=== PATIENT | male | born 1980 | race Caucasian/White ===

== ENCOUNTER 2017-05-08 14:39 | Emergency (ER) | payer BC ==
[~2017-05-08] VITALS: Ht 167.6 cm; Wt 77.0 kg
[2017-05-08 14:45] VITALS: TEMP 36.7; Ht 167.6 cm; Wt 77.0 kg
--- NOTE | 2017-05-08 14:56 | EMERGENCY ROOM VISIT NOTE ---
History Report prepared by Stephanie: Rodney Forbes Under the Supervision of: Dr. Aristeo Tripathi D.O. First contact with patient: 14:41 Chief Complaint: CALF PAIN Stated Complaint: CALF INJURY History of Present Illness The patient is a 36 year old male who presents to the Emergency Room with complaints of constant right calf pain starting yesterday morning. The patient states that it is a cramping pain, and it feels like a Darion horse. He additionally states that last night he was having nausea and the chills. The patient denies any chest pain, shortness of breath, abdominal pain, groin pain, thigh pain, history of clots in his lungs or legs, and any recent bites or injuries. He states that he does not take any medications daily, and he had a hernia repair a long time ago. Source of History: patient Onset: yesterday morning Position: other (right calf) Quality: cramping Timing: constant Associated Symptoms: + chills, + nausea, No chest pain, No SOB, No abdominal pain Review of Systems See HPI for pertinent positives & negatives. A total of 10 systems reviewed and were otherwise negative. Past Medical & Surgical Surgical Problems: (1) H/O hernia repair Social History Smoking Status: Never Smoker Marital Status: Housing Status: lives with family Occupation Status: employed Current/Historical Medications Scheduled Cephalexin Monohydrate (Keflex), 500 MG PO QID Sulfa/Trimethoprim (Bactrim Ds 800MG/160MG), 1 TAB PO BID Scheduled PRN Oxycodone Immediate Rel Tab (Roxicodone Ir), 1-2 TAB PO Q4H PRN for Severe Pain Allergies Coded Allergies: No Known Allergies (Unverified , 10/20/14) Physical Exam Vital Signs Date Time Temp Pulse Resp B/P (MAP) Pulse Ox O2 Delivery O2 Flow Rate FiO2 05/08/17 18:00 72 20 120/77 98 Room Air 05/08/17 16:30 74 21 128/79 97 Room Air 05/08/17 16:02 78 12 119/80 100 Room Air 05/08/17 15:22 82 20 123/79 97 Room Air 05/08/17 15:13 91 05/08/17 14:57 Room Air 05/08/17 14:45 36.7 110 20 143/91 98 Room Air Physical Exam GENERAL: Patient is awake, alert, and in no acute distress. Patient is resting comfortably and showing no signs of anxiety EYES: The conjunctivae are clear. The pupils are round and reactive. EARS, NOSE, MOUTH AND THROAT: The nose is without any evidence of any deformity. Mucous membranes are moist tongue is midline NECK: The neck is nontender and supple. RESPIRATORY: Normal respiratory effort is noted there is no evidence of wheezing rhonchi or rales CARDIOVASCULAR: Regular rate and rhythm noted there no murmurs rubs or gallops normal S1 normal S2 GASTROINTESTINAL: The abdomen is soft. Bowel sounds are present in all quadrants. Abdomen is nontender MUSCULOSKELETAL/EXTREMITIES: There is no evidence of gross deformity full range of motion is noted in the hips and shoulders SKIN: There was right calf tenderness, swelling, and erythema on the medial aspect of the calf. Pulses are symmetric in both lower extremities. No lymphangitic streaking appreciated. NEUROLOGIC: Patient is awake alert and oriented x3 strength is symmetric patellar reflexes are 2+ bilaterally Medical Decision & Procedures ER Provider Diagnostic Interpretation: Radiology results as stated below per my review and radiologist interpretation: R TIBIA/FIBULA 2 VIEWS ROUTINE CLINICAL HISTORY: Right leg swelling. COMPARISON: Right knee radiograph October 20, 2014. FINDINGS: No fracture or osseous lesion within the right tibia or fibula is identified. Talar dome is intact. There is no soft tissue gas. IMPRESSION: No abnormality of the right tibia or fibula. Electronically signed by: Lamberto Chamberlain M.D. 05/08/2017 3:28 PM Dictated Date/Time: 05/08/2017 3:27 PM RIGHT LOWER EXTREMITY VENOUS DOPPLER HISTORY: Right leg swelling COMPARISON STUDY: None. FINDINGS: There is normal compressibility, flow, and augmentation within the right lower extremity deep venous system. IMPRESSION: No DVT within the right lower extremity Electronically signed by: Saman Cabrera M.D. 05/08/2017 3:43 PM Dictated Date/Time: 05/08/2017 3:43 PM CHEST ONE VIEW PORTABLE HISTORY: Atypical CHEST PAIN COMPARISON: None. FINDINGS: The lungs are clear. Cardiac silhouette is normal in size. No pleural effusions. No pneumothorax. IMPRESSION: No acute process. Electronically signed by: Saman Cabrera M.D. 05/08/2017 3:21 PM Dictated Date/Time: 05/08/2017 3:20 PM Laboratory Results 05/08/17 15:00 Red Blood Count 4.39, Mean Corpuscular Volume 94.5, Mean Corpuscular Hemoglobin 33.7, Mean Corpuscular Hemoglobin Concent 35.7, Mean Platelet Volume 11.0, Neutrophils (%) (Auto) 80.3, Lymphocytes (%) (Auto) 9.6, Monocytes (%) (Auto) 8.8, Eosinophils (%) (Auto) 0.8, Basophils (%) (Auto) 0.2, Neutrophils # (Auto) 10.69, Lymphocytes # (Auto) 1.28, Monocytes # (Auto) 1.17, Eosinophils # (Auto) 0.10, Basophils # (Auto) 0.02 05/08/17 15:00 Test 05/08/17 15:00 White Blood Count 13.30 K/uL (4.8-10.8) Red Blood Count 4.39 M/uL (4.7-6.1) Hemoglobin 14.8 g/dL (14.0-18.0) Hematocrit 41.5 % (42-52) Mean Corpuscular Volume 94.5 fL (80-100) Mean Corpuscular Hemoglobin 33.7 pg (25-34) Mean Corpuscular Hemoglobin Concent 35.7 g/dl (32-36) Platelet Count 251 K/uL (130-400) Mean Platelet Volume 11.0 fL (7.4-10.4) Neutrophils (%) (Auto) 80.3 % Lymphocytes (%) (Auto) 9.6 % Monocytes (%) (Auto) 8.8 % Eosinophils (%) (Auto) 0.8 % Basophils (%) (Auto) 0.2 % Neutrophils # (Auto) 10.69 K/uL (1.4-6.5) Lymphocytes # (Auto) 1.28 K/uL (1.2-3.4) Monocytes # (Auto) 1.17 K/uL (0.11-0.59) Eosinophils # (Auto) 0.10 K/uL (0-0.5) Basophils # (Auto) 0.02 K/uL (0-0.2) RDW Standard Deviation 41.3 fL (36.4-46.3) RDW Coefficient of Variation 12.1 % (11.5-14.5) Immature Granulocyte % (Auto) 0.3 % Immature Granulocyte # (Auto) 0.04 K/uL (0.00-0.02) Erythrocyte Sedimentation Rate 16 mm/hr (0-14) Prothrombin Time 11.2 SECONDS (9.0-12.0) Prothromb Time International Ratio 1.1 (0.9-1.1) Activated Partial Thromboplast Time 30.8 SECONDS (21.0-31.0) Partial Thromboplastin Ratio 1.2 Anion Gap 6.0 mmol/L (3-11) Est Creatinine Clear Calc Drug Dose 94.1 ml/min Estimated GFR () 104.6 Estimated GFR (Non- 90.2 BUN/Creatinine Ratio 21.2 (10-20) Calcium Level 8.9 mg/dl (8.5-10.1) Total Bilirubin 1.3 mg/dl (0.2-1) Direct Bilirubin 0.2 mg/dl (0-0.2) Aspartate Amino Transf (AST/SGOT) 13 U/L (15-37) Alanine Aminotransferase (ALT/SGPT) 27 U/L (12-78) Alkaline Phosphatase 68 U/L (45-117) Total Creatine Kinase 152 U/L (39-308) Troponin I < 0.015 ng/ml (0-0.045) C-Reactive Protein 10.90 mg/dl (0-0.29) Total Protein 7.2 gm/dl (6.4-8.2) Albumin 3.8 gm/dl (3.4-5.0) Lipase 143 U/L (73-393) Lyme Disease IgG Antibody NEG (NEG) Lyme Disease IgM Antibody NEG (NEG) Laboratory results per my review. Medications Administered Medications (Trade) Dose Ordered Sig/Berenice Route Start Time Stop Time Status Last Admin Dose Admin Sodium Chloride 1,000 ml @ 999 mls/hr Q1H1M STAT IV 05/08/17 15:49 05/08/17 16:49 DC 05/08/17 15:49 999 MLS/HR Ceftriaxone Sodium (Rocephin Inj) 1 gm NOW STAT IV 05/08/17 15:49 05/08/17 15:50 DC 05/08/17 16:01 1 GM ECG Indication: other (right calf pain) Rate (beats per minute): 83 Rhythm: normal sinus Findings: no ectopy, other (No acute ST segment abnormality) Comparison ECG Date: no prior available ED Course 1441: The patient was evaluated in room B6. A complete history and physical examination were performed. 1549: Rocephin 1gm IV, NSS 1,000 ml @ 999 mls/hr IV 1550: I reevaluated the patient, and he is feeling okay. 1739: I reassessed the patient, and he was feeling better. 1808: Upon reevaluation, the patient is doing well. I discussed the results and treatment plan with him. He verbalized agreement of the treatment plan. He was discharged home. Medical Decision Differential diagnosis: Etiologies such as DVT, musculoskeletal, infection, joint effusion, trauma, lymphedema, idiopathic, CHF, as well as others were entertained. Nursing notes reviewed. The patient is a 36-year-old male who presented to the emergency department for an evaluation of right calf swelling. The patient had pain with ambulation and noted that his right calf was swollen. Ultrasound did not show signs of DVT but clinically the patient had signs of cellulitis. He has significant erythema on the medial aspect of his right lower leg. The patient was treated with IV antibiotics in the emergency department. He was also given IV fluids. I discussed the patient's laboratory radiographic studies with him. At this time I feel he would be a good candidate for outpatient therapy. He was encouraged to continue all medications as prescribed and keep the leg elevated as much as possible. He was also encouraged follow-up with his family doctor for reevaluation but return to the emergency department if symptoms change worsen or the need arises. Specifically I told him if symptoms started to worsen with increased erythema streaking up the leg or systemic symptoms of infection such as fever. Medication Reconcilliation Current Medication List: was personally reviewed by me Blood Pressure Screening Patient's blood pressure: Normal blood pressure Impression Primary Impression: Cellulitis of right lower extremity Scribe Attestation The scribe's documentation has been prepared under my direction and personally reviewed by me in its entirety. I confirm that the note above accurately reflects all work, treatment, procedures, and medical decision making performed by me. Departure Information Dispostion Home / Self-Care Prescriptions Oxycodone Immediate Rel Tab (ROXICODONE IR) 5 Mg Tab 1-2 TAB PO Q4H Y for Severe Pain, #24 TAB Prov: Aristeo Tripathi, DO 05/08/17 Cephalexin Monohydrate (KEFLEX) 500 Mg Cap 500 MG PO QID, #40 CAP Prov: Aristeo Tripathi, DO 05/08/17 Sulfa/Trimethoprim (Bactrim Ds 800MG/160MG) Tab 1 TAB PO BID, #20 TAB Prov: Aristeo Tripathi, DO 05/08/17 Referrals No Doctor, Assigned (PCP) Forms HOME CARE DOCUMENTATION FORM, IMPORTANT VISIT INFORMATION, Work Instructions Patient Instructions Cellulitis [facility], [facility] Additional Instructions Call your family to schedule a follow-up appointment. Continue using Motrin and Tylenol as directed for mild pain. Keep the leg elevated as much as possible. Continue all other medications as prescribed. Return to the emergency department immediately if symptoms change worsen or the need arises.
[2017-05-08 15:16] LABS: BASO % 0.2 %; BASO ABS # 0.02 K/uL (0-0.2); COMPLETE YES; EOS % 0.8 %; HEMATOCRIT 41.5 % (42-52); IG% 0.3 %; LYMPH % 9.6 %; LYMPH ABS # 1.28 K/uL (1.2-3.4); MEAN CELL VOLUME 94.5 fL (80-100); MEAN CORPUSCULAR HEMOGLOBIN 33.7 pg (25-34); MEAN CORPUSCULAR HGB CONC 35.7 g/dl (32-36); MONO % 8.8 %; NEUT % 80.3 %; PLATELET COUNT 251 K/uL (130-400); RED BLOOD COUNT 4.39 M/uL (4.7-6.1)
--- NOTE | 2017-05-08 15:22 | DIAGNOSTIC IMAGING REPORT ---
CHEST ONE VIEW PORTABLE HISTORY: Atypical CHEST PAIN COMPARISON: None. FINDINGS: The lungs are clear. Cardiac silhouette is normal in size. No pleural effusions. No pneumothorax. IMPRESSION: No acute process. Electronically signed by: Saman Cabrera M.D. 05/08/2017 3:21 PM Dictated Date/Time: 05/08/2017 3:20 PM
[2017-05-08 15:25] LABS: INR 1.1 (0.9-1.1); PARTIAL THROMBOPLASTIN RATIO 1.2; PROTHROMBIN TIME (PATIENT) 11.2 SECONDS (9.0-12.0)
--- NOTE | 2017-05-08 15:29 | DIAGNOSTIC IMAGING REPORT ---
R TIBIA/FIBULA 2 VIEWS ROUTINE CLINICAL HISTORY: Right leg swelling. COMPARISON: Right knee radiograph October 20, 2014. FINDINGS: No fracture or osseous lesion within the right tibia or fibula is identified. Talar dome is intact. There is no soft tissue gas. IMPRESSION: No abnormality of the right tibia or fibula. Electronically signed by: Lamberto Chamberlain M.D. 05/08/2017 3:28 PM Dictated Date/Time: 05/08/2017 3:27 PM
[2017-05-08 15:33] LABS: ALT/SGPT 27 U/L (12-78); BLOOD UREA NITROGEN 22 mg/dl (7-18); BUN/CREATININE RATIO 21.2 (10-20); CALCIUM 8.9 mg/dl (8.5-10.1); CARBON DIOXIDE 28 mmol/L (21-32); CHLORIDE 104 mmol/L (98-107); CREATININE 1.05 mg/dl (0.60-1.40); GLUCOSE 86 mg/dl (70-99); POTASSIUM 3.7 mmol/L (3.5-5.1); SODIUM 138 mmol/L (136-145)
[2017-05-08 15:36] LABS: ALKALINE PHOSPHATASE 68 U/L (45-117); AST/SGOT 13 U/L (15-37)
--- NOTE | 2017-05-08 15:45 | DIAGNOSTIC IMAGING REPORT ---
RIGHT LOWER EXTREMITY VENOUS DOPPLER HISTORY: Right leg swelling COMPARISON STUDY: None. FINDINGS: There is normal compressibility, flow, and augmentation within the right lower extremity deep venous system. IMPRESSION: No DVT within the right lower extremity Electronically signed by: Saman Cabrera M.D. 05/08/2017 3:43 PM Dictated Date/Time: 05/08/2017 3:43 PM
[2017-05-08] MEDS ORDERED: SODIUM CHLORIDE 0.9% 1000ML 1,000 ML IV STA (15:49)
[2017-05-08] MEDS ORDERED: CEFTRIAXONE SOD INJ 1 GM ADDVIAL IV STA (15:49)
[2017-05-08 17:00] LABS: LYME DISEASE AB IGG NEG (NEG); LYME DISEASE AB IGM NEG (NEG)
[2017-05-08] MEDS ORDERED: CEPH500C2 PO (17:55)
[2017-05-08] MEDS ORDERED: OXYC1TAB3 PO (17:55)
[2017-05-08] MEDS ORDERED: SULF800T23 PO (17:55)
[2017-05-08 18:00] VITALS: BP 120/77; PULSE 72; O2SAT 98
== END 2017-05-08 18:26 | disposition home or self-care (01) ==
LOC: C.EDB 14:40
DX: L03.115 Cellulitis of right lower limb (principal)

== ENCOUNTER 2017-05-09 09:56 | Emergency (ER) | payer BC ==
[~2017-05-09] VITALS: Ht 167.6 cm; Wt 75.5 kg
[~2017-05-09 09:56] MED LIST: CEPH500C2 PO; OXYC1TAB3 PO; SULF800T23 PO
[2017-05-09 09:58] VITALS: TEMP 36.8; Ht 167.6 cm; Wt 75.5 kg
[2017-05-09] MEDS ORDERED: CEFTRIAXONE SOD INJ 1 GM ADDVIAL IV STA (10:15)
[2017-05-09 12:19] VITALS: BP 129/79; PULSE 78; O2SAT 98
--- NOTE | 2017-05-09 14:29 | EMERGENCY ROOM VISIT NOTE ---
History First contact with patient: 10:06 Chief Complaint: LEG PAIN,LEG INJURY Stated Complaint: CALF PAIN History of Present Illness The patient is a 36 year old male who presents to the Emergency Room with complaints of persistent redness of his right leg. The patient was seen in the emergency department yesterday for cellulitis. He was administered IV Rocephin , and provided prescriptions for Bactrim and Keflex. He has been taking these antibiotics as recommended. He reports that the redness has slightly extended past herr that were placed on the leg. He denies any worsening pain, fevers or numbness of the right lower extremity. He rates his discomfort a 5 out of 10. The patient does not believe that the intensity of the redness has worsen, and in fact thinks it has slightly improved. Review of Systems 10 system review was performed and was negative except for pertinent positives and negatives as indicated in history of present illness Past Medical/Surgical History Surgical Problems: (1) H/O hernia repair Family History Unremarkable Social History Smoking Status: Never Smoker Marital Status: Housing Status: lives with family Occupation Status: employed Current/Historical Medications Scheduled Cephalexin Monohydrate (Keflex), 500 MG PO QID Sulfa/Trimethoprim (Bactrim Ds 800MG/160MG), 1 TAB PO BID Scheduled PRN Oxycodone Immediate Rel Tab (Roxicodone Ir), 1-2 TAB PO Q4H PRN for Severe Pain Physical Exam Vital Signs Date Time Temp Pulse Resp B/P (MAP) Pulse Ox O2 Delivery O2 Flow Rate FiO2 05/09/17 12:19 78 16 129/79 98 Room Air 05/09/17 09:58 36.8 93 20 137/77 99 Room Air Physical Exam CONSTITUTIONAL: Healthy and well nourished. Alert and oriented X 3 with positive affect. Patient does not appear acutely ill or toxic. HEENT: Normocephalic, atraumatic. Pupils equal, round and reactive. NECK: Full active range of motion without discomfort. MUSCULOSKELETAL: Examination of the right lower extremity does not show any significant soft tissue edema. An area of erythema on the anterior lateral right leg is noted. Margins were previously demarcated, with some extension inferiorly and proximally. Pedal pulses are intact. INTEGUMENTARY: No rash or other significant dermatologic conditions noted. NEUROLOGIC: No focal neurologic deficits noted. Right foot and toes are sensory intact. Medical Decision & Procedures Medications Administered Medications (Trade) Dose Ordered Sig/Berenice Route Start Time Stop Time Status Last Admin Dose Admin Ceftriaxone Sodium (Rocephin Inj) 1 gm NOW STAT IV 05/09/17 10:15 05/09/17 10:16 DC 05/09/17 10:28 1 GM ED Course Patient history and physical exam were performed. Nurse's notes were reviewed. Vital signs were reviewed and were normal. The patient is afebrile. He does not appear in any acute distress. I did elect to administer an additional Rocephin 1 g IV infusion. The patient was instructed to return in 24 hours if he has no improvement, otherwise will follow up with his PCP as needed. He will complete all Keflex and Bactrim DS antibiotics as prescribed. The patient was happy with plan of care, and voiced understanding of all discharge instructions. Medical Decision Medication Reconcilliation Current Medication List: was personally reviewed by me Blood Pressure Screening Patient's blood pressure: Normal blood pressure Impression Primary Impression: Cellulitis of right leg Departure Information Dispostion Home / Self-Care Condition GOOD Forms HOME CARE DOCUMENTATION FORM, IMPORTANT VISIT INFORMATION Patient Instructions My [facility] Additional Instructions Continue with Keflex and Bactrim DS antibiotics as previously prescribed. The redness should start to fade away within the next 24-48 hours. Return to the emergency department for any progressively worsening redness, swelling, pain or developing fever.
== END 2017-05-09 12:22 | disposition home or self-care (01) ==
LOC: C.EDB 09:58 → C.EDA 12:22
DX: L03.115 Cellulitis of right lower limb (principal); Z98.890 Other specified postprocedural states

== ENCOUNTER 2024-09-02 18:54 | Inpatient (IN) ==
[~2024-09-02 18:54] MED LIST changes: -CEPH500C2 PO; +GABAPENTIN 600 MG TAB PO SCH; -OXYC1TAB3 PO; -SULF800T23 PO
[2024-09-02 19:44] LABS: Basophils # (auto) 0.06 K/uL (0.00-0.20); Basophils % (auto) 0.3 %; Eosinophils # (auto) 0.05 K/uL (0.00-0.50); Eosinophils % (auto) 0.2 %; Hematocrit (blood only) 44.2 % (42.0-52.0); Hemoglobin 15.9 g/dl (14.0-18.0); Immature Granulocytes # (auto) 0.11 K/uL (0.01-0.20); Immature Granulocytes % (auto) 0.5 %; Lymphocytes # (auto) 1.37 K/uL (1.20-3.40); Lymphocytes % (auto) 6.3 %; Mean Corpuscular Hemoglobin 32.1 pg (25.0-34.0); Mean Corpuscular Volume 89.3 fL (80.0-100.0); Mean Platelet Volume 10.9 fL (9.4-12.4); Monocytes # (auto) 1.02 K/uL (0.11-0.59); Monocytes % (auto) 4.7 %; Neutrophils # (auto) 19.25 K/uL (1.40-6.50); Platelet Count 343 K/uL (130-400); RDW Coefficient of Variation 11.9 % (11.5-14.5); RDW Standard Deviation 38.4 fL (36.4-46.3); Red Blood Count 4.95 M/uL (4.70-6.10); White Blood Count 21.86 K/ul (4.8-10.8)
--- NOTE | 2024-09-02 19:44 | Emergency Department Note ---
Impression & Plan Sepsis, Cellulitis of left lower extremity, Leukocytosis ED Provider Note NAME: ELIANA SHERWOOD AGE: 43 SEX: M : 1980 ARRIVES VIA: Walk-In INFORMANT: Patient ED PROVIDER(S): Fabian Arciniega DO CHIEF COMPLAINT: Left leg pain HPI: Patient is a 43-year-old male who presents ER for left leg pain. He notes he has had a wound on the dorsal surface of his ankle for the past 2 weeks. He notes it has gradually opened up. Redness has become significantly worse. He is having swelling of his left calf. He notes fever started on Thursday but he felt well since then. Over the past 24 hours it has gotten significantly worse. He feels hot and cold. Denies any headache or change in vision. No chest pain or shortness of breath. No nausea, vomiting, or diarrhea. No dysuria, urgency, or frequency. ADDITIONAL HISTORY OBTAINED: Per HPI Chronic Medical/Social Conditions Affecting Care: Per HPI PAST MEDICAL HISTORY:See Below PAST SURGICAL HISTORY:See Below FAMILY HISTORY:See Below SOCIAL HISTORY:See Below HOME MEDICATIONS:See Below ALLERGIES:See Below VITALS:See Below PHYSICAL EXAMINATION: GENERAL: Sitting up in bed, alert, well appearing, well nourished, no distress, non-toxic EYE EXAM: normal conjunctiva. OROPHARYNX: no exudate, no erythema, lips, buccal mucosa, and tongue normal and mucous membranes are moist NECK: supple, no nuchal rigidity, no adenopathy, non-tender LUNGS: Clear to auscultation. Normal chest wall mechanics HEART: no murmurs, S1 normal and S2 normal ABDOMEN: abdomen soft, non-tender, normo-active bowel sounds, no masses, no rebound or guarding. BACK: Back is symmetrical on inspection and there is no deformity, no midline tenderness, no CVA tenderness. SKIN: no rashes and no bruising UPPER EXTREMITIES: upper extremities are grossly normal. LOWER EXTREMITIES: Dorsal surface left ankle with 2 open wounds and a small surrounding rash. Skin is erythematous warm and tender. NEURO EXAM: Normal sensorium, cranial nerves II-XII grossly intact, normal speech, no gross weakness of arms, no gross weakness of legs. MEDICAL DECISION MAKING: Patient is a 43-year-old male who presents to the ER for the above-stated complaint. IV was established and blood work was obtained. He was tachycardic with a heart rate in the 130s. He was febrile. On exam he has a clear cellulitis of his left lower extremity with a wound. Labs showed a leukocytosis of 21,000. No significant anemia. INR unremarkable. BMP along with LFTs bilirubin was unremarkable. UA was clean. Patient was given 2 g of Rocephin as well as IV vancomycin. He was updated bedside discussed case with the hospitalist as he was tachycardic, febrile and had a white count of 21,000 and was admitted for for further workup. He was given 2 L of fluids which was just over 30 cc/kg for ideal body weight. Patient was also given IV Toradol. Consults/Care Managements Discussions: Per MDM Triage Nursing notes reviewed. Limited review of prior medical records performed Vital Signs: reviewed and remarkable for febrile tachycardic Differential diagnosis: Differential diagnosis includes etiologies such as sepsis, UTI, pneumonia, metabolic, electrolyte abnormalities, cardiac sources, intracerebral event, toxicologic, neurological, as well as others were entertained. ER treatment provided: See below Diagnostics interpreted by me include EKG and cardiac monitoring as listed below: -Cardiac Monitoring: An order was placed for continuous cardiac monitoring. The monitor shows a rate of 120 with sinus rhythm. -ECG: none -Laboratory studies:Interpreted by me as stated above in MDM and shown below. Imaging studies: Xrays: As interpreted by me:none CTs show: none Procedures:none Critical Care: I have personally spent 32 minutes of critical care time in the direct management of this patient. This includes bedside care, interpretation of diagnostic studies, and testing, discussion with consultants, patient, and family members, and other required patient management activities. This 32 minutes is in excess of all separately billable procedures. Past Med/Surg History Problem List (Updated 09/02/24 @ 23:03 by Fabian Arciniega DO) Leukocytosis (Acute) Cellulitis of left lower extremity (Acute) Sepsis (Acute) Knee pain (Acute) Cellulitis of right leg (Acute) Surgical History (Updated 09/02/24 @ 22:13 by Chelo Hidalgo PA-C) History of lymph node excision right neck. pt reports was benign H/O hernia repair Social History Smoking Status: Never smoker Hx Alcohol Use: Yes (10 beers on and Saturdays. ) Hx Substance Use: No Preferred Language: Sinhala Feels Safe at Home: Yes Allergies Allergies Allergy/AdvReac Type Severity Reaction Status Date / Time No Known Allergies Allergy Unverified 09/02/24 21:35 Home Meds Home Medications Medication Instructions Recorded Confirmed No Known Home Medications 09/02/24 09/02/24 Results & Data (ED) Vital Signs Vital Signs - 24 hr 09/02/24 19:06 09/02/24 19:55 09/02/24 19:59 Temperature 37.9 C H Temperature Source Temporal Artery Scan Pulse Rate 134 H 109 H 103 H Pulse Rate from SpO2 Sensor Respiratory Rate 18 19 Respiratory Effort / Characteristics Non-Labored Spontaneous Respiratory Depth Normal Respiratory Pattern Regular Blood Pressure 165/101 H Blood Pressure Mean 122 Blood Pressure Position Sitting Pulse Oximetry 97 96 Oxygen Delivery Method Room Air Room Air Sepsis Recent Fever Within 48 Hours No Sepsis New/Unexplained Change in Mental Status N/A Sepsis Action Taken by Nursing No Action Required 09/02/24 20:15 09/02/24 20:36 09/02/24 20:45 Temperature Temperature Source Pulse Rate 106 H 107 H Pulse Rate from SpO2 Sensor 108 H 107 H Respiratory Rate 18 18 Respiratory Effort / Characteristics Respiratory Depth Respiratory Pattern Blood Pressure 146/109 H 163/109 H 156/113 H Blood Pressure Mean 121 127 127 Blood Pressure Position Pulse Oximetry 96 96 Oxygen Delivery Method Sepsis Recent Fever Within 48 Hours Sepsis New/Unexplained Change in Mental Status Sepsis Action Taken by Nursing 09/02/24 20:48 09/02/24 21:03 09/02/24 21:15 Temperature Temperature Source Pulse Rate 112 H 122 H Pulse Rate from SpO2 Sensor 111 H 122 H Respiratory Rate 20 19 Respiratory Effort / Characteristics Respiratory Depth Respiratory Pattern Blood Pressure 156/113 H 155/119 H 148/90 H Blood Pressure Mean 127 131 109 Blood Pressure Position Pulse Oximetry 96 96 Oxygen Delivery Method Sepsis Recent Fever Within 48 Hours Sepsis New/Unexplained Change in Mental Status Sepsis Action Taken by Nursing 09/02/24 21:30 09/02/24 21:45 09/02/24 22:00 Temperature Temperature Source Pulse Rate 116 H 120 H Pulse Rate from SpO2 Sensor 111 H 119 H Respiratory Rate 17 26 H Respiratory Effort / Characteristics Respiratory Depth Respiratory Pattern Blood Pressure 159/101 H 147/99 H 156/108 H Blood Pressure Mean 120 115 124 Blood Pressure Position Pulse Oximetry 96 97 Oxygen Delivery Method Sepsis Recent Fever Within 48 Hours Sepsis New/Unexplained Change in Mental Status Sepsis Action Taken by Nursing Laboratory Data 09/02/24 19:19 09/02/24 19:19 Lab Results 09/02/24 09/02/24 Range/Units 19:19 Unknown WBC 21.86 H (4.8-10.8) K/ul RBC 4.95 (4.70-6.10) M/uL Hgb 15.9 (14.0-18.0) g/dl Hct 44.2 (42.0-52.0) % MCV 89.3 (80.0-100.0) fL MCH 32.1 (25.0-34.0) pg MCHC 36.0 (32.0-36.0) g/dL RDW Std Deviation 38.4 (36.4-46.3) fL RDW Coeff of Jeff 11.9 (11.5-14.5) % Plt Count 343 (130-400) K/uL MPV 10.9 (9.4-12.4) fL Immature Gran % (Auto) 0.5 % Neut % (Auto) 88.0 % Lymph % (Auto) 6.3 % [place] % (Auto) 4.7 % Eos % (Auto) 0.2 % Baso % (Auto) 0.3 % Neut # (Auto) 19.25 H (1.40-6.50) K/uL Lymph # (Auto) 1.37 (1.20-3.40) K/uL [place] # (Auto) 1.02 H (0.11-0.59) K/uL Eos # (Auto) 0.05 (0.00-0.50) K/uL Baso # (Auto) 0.06 (0.00-0.20) K/uL Immature Gran # (Auto) 0.11 (0.01-0.20) K/uL PT 10.9 (9.0-12.0) Seconds INR 1.0 (0.9-1.1) APTT 27 (21-31) Seconds PTT Ratio 1.0 Sodium 134 L (136-145) mmol/L Potassium 3.8 (3.5-5.1) mmol/L Chloride 101 (98-107) mmol/L Carbon Dioxide 24 (21-32) mmol/L Anion Gap 9 (3-11) BUN 16 (6-23) mg/dl Creatinine 1.04 (0.6-1.4) mg/dl Est Cr Clr Drug Dosing 96.8 ml/min eGFR 90.80 BUN/Creatinine Ratio 15.4 (10-20) Glucose 98 (70-99(Fasting)) mg/dl Lactate 1.4 (0.4-2.0) mmol/L Calcium 10.1 (8.6-10.3) mg/dl Magnesium 1.7 (1.7-2.4) mg/dl Total Bilirubin 1.2 H (0.2-1.0) mg/dl AST 28 (13-39) U/L ALT 55 H (7-52) U/L Alkaline Phosphatase 79 (34-104) U/L Troponin I High Sens < 2.3 (0-20) pg/ml Total Protein 7.9 (6.0-8.3) gm/dl Albumin 4.6 (3.4-5.0) gm/dl Globulin 3.3 (2.5-4.0) gm/dl Albumin/Globulin Ratio 1.4 (0.9-2) Procalcitonin 0.04 (0-0.5) ng/ml Urine Color Yellow Urine Appearance Clear (Clear) Urine pH 5.5 (4.5-7.5) Ur Specific [place] 1.009 (1.000-1.030) Urine Protein Negative (Negative) Urine Glucose (UA) Negative (Negative) Urine Ketones 1+ H (Negative) Urine Blood Negative (Negative) Urine Nitrite Negative (Negative) Urine Bilirubin Negative (Negative) Urine Urobilinogen Negative (Negative) Ur Leukocyte Esterase Negative (Negative) Administered Medications Sodium Chloride (Nss) 1,000 mls @ 999 mls/hr IV .Q1H1M KIM Stop: 09/02/24 23:00 Last Admin: 09/02/24 22:09 Dose: 999 mls/hr Documented By: Infusion: 09/02/24 22:09 Dose: Infused Documented By: NRTravon Admin: 09/02/24 21:13 Dose: 999 mls/hr Documented By: HAI Doxycycline Hyclate 100 mg/ (Dextrose) 100 mls @ 50 mls/hr IV NOW STA Stop: 09/02/24 23:36 Last Admin: 09/02/24 22:09 Dose: 50 mls/hr Documented By: HAI Magnesium Sulfate/Dextrose (Magnesium Sulfate / D5w) 1 gm in 100 mls @ 50 mls/hr IV Q2H KIM Stop: 09/03/24 01:59 Last Admin: 09/02/24 22:08 Dose: 50 mls/hr Documented By: NRTravon Discontinued Medications Ceftriaxone Sodium (Rocephin) 2,000 mg in 50 mls @ 100 mls/hr IV NOW STA Stop: 09/02/24 20:05 Last Infusion: 09/02/24 20:29 Dose: Infused Documented By: NRTravon Admin: 09/02/24 19:46 Dose: 100 mls/hr Documented By: JUAQUIN Vancomycin HCl 1,750 mg/ (Sodium Chloride) 535 mls @ 200 mls/hr IV NOW ONE Stop: 09/02/24 22:29 Last Admin: 09/02/24 21:27 Dose: Not Given Documented By: HAI Ketorolac Tromethamine (Ketorolac Tromethamine 15 Mg/Ml Vial) 10 mg IV NOW ONE Stop: 09/02/24 19:37 Last Admin: 09/02/24 19:47 Dose: 10 mg Documented By: JUAQUIN Discharge Plan Visit Data Chief Complaint: Leg Injury/Pain Stated Complaint: L CALF/ANKLE SWOLLEN/RED ED Provider: Fabian Arciniega Discharge Problem: Sepsis, Cellulitis of left lower extremity, Leukocytosis Forms Stand Alone Forms: [employer] Prescriptions Prescriptions: No Action No Known Home Medications Referrals Referrals: Prasanth Guajardo [Primary Care Provider] - Discharge Problem: Sepsis Qualifiers: Sepsis type: sepsis due to unspecified organism Sepsis acute organ dysfunction status: unspecified Qualified Code(s): A41.9 - Sepsis, unspecified organism Leukocytosis Qualifiers: Leukocytosis type: unspecified Qualified Code(s): D72.829 - Elevated white blood cell count, unspecified
[2024-09-02] MEDS: cefTRIAXone SODIUM 2,000 MG/50 ML BAG IV STA (19:46)
[2024-09-02] MEDS: KETOROLAC TROMETHAMINE 15 MG/ML VIAL IV ONE (19:47)
[2024-09-02] MEDS ORDERED: VANCOMYCIN CONSULT ACTIVE PRN (19:49)
[2024-09-02 20:04] LABS: Alanine Aminotransferase 55 U/L (7-52); Albumin Globulin Ratio 1.4 (0.9-2); Albumin Level 4.6 gm/dl (3.4-5.0); Alkaline Phosphatase 79 U/L (34-104); Anion Gap 9 (3-11); Aspartate Aminotransferase 28 U/L (13-39); BUN Creatinine Ratio 15.4 (10-20); Bilirubin,Total 1.2 mg/dl (0.2-1.0); Blood Urea Nitrogen 16 mg/dl (6-23); Calcium 10.1 mg/dl (8.6-10.3); Carbon Dioxide 24 mmol/L (21-32); Chloride 101 mmol/L (98-107); Creatinine Clr Calc Pharmacy 96.8 ml/min; Globulin 3.3 gm/dl (2.5-4.0); Glucose 98 mg/dl (70-99(Fasting)); Magnesium 1.7 mg/dl (1.7-2.4); Potassium 3.8 mmol/L (3.5-5.1); Sodium 134 mmol/L (136-145); Total Protein 7.9 gm/dl (6.0-8.3)
[2024-09-02 20:10] LABS: Troponin I High Sensitivity < 2.3 pg/ml (0-20)
[2024-09-02 20:20] LABS: Partial Thromboplastin Time 27 Seconds (21-31); Prothrombin Time 10.9 Seconds (9.0-12.0)
[2024-09-02] MEDS: SODIUM CHLORIDE 0.9% 1,000 ML IV SCH (21:13)
--- NOTE | 2024-09-02 21:14 | History & Physical Report ---
Date of Service September 02, 2024 Assessment & Plan (1) Sepsis: (2) Cellulitis of left lower extremity: Plan: HPI, ROS, PE completed by Chelo Hidalgo PA-C Assessment and Plan per Dr Arias. See addendum. History of Present Illness Chief Complaint: leg pain and fever Primary Care Provider: Prasanth Guajardo Patient is 43 year old male without significant medical history presented to ER with c/o left leg pain, erythema and fever. Patient reports 2 weeks ago had itchy area to left anterior lower leg and was scratching at area. Reports had some scratches noted the following morning. Wears boots and states boots rubbed at area. Noticed some surrounding erythema. States 6 days ago started with tactile fever, diaphoresis, nausea and vomiting and had noticed edema and erythema to left ankle. He reports felt better without further chills/N/V. Today increased pain to left lower leg, increased erythema and has chills. Taking Tylenol and ibuprofen with limited relief. Having some PARRISH today. Denies any known insect or animal bites or poison shahab exposure. States episode of cellulitis in remote past that was treated with oral antibiotics. Denies history MRSA. Reports last tetanus booster within the last 10 years. Denies hematemesis, hematochezia, melena, diarrhea, constipation, dizziness, syncope, vision changes, neck pain, CP, SOB, cough, sore throat, rhinorrhea, abdominal pain, paresthesias, weakness, other rashes, urinary symptoms. Presented to ER and noted to be febrile with T: 37.9C, P: 134, R: 18, BP 165/101, 97% on room air. WBC: 21.8, lactate: 1.4, procalcitonin: 0.04. In ER given 1L NSS, Rocephin 2 g IV, vancomycin IV, Toradol 10 mg IV. Allergies Allergy/AdvReac Type Severity Reaction Status Date / Time No Known Allergies Allergy Unverified 09/02/24 21:35 Home Medications Medication Instructions Recorded Confirmed Type No Known Home Medications 09/02/24 09/02/24 History Past Med/Surg History Problem List (Updated 09/02/24 @ 23:03 by Fabian Arciniega DO) Leukocytosis (Acute) Cellulitis of left lower extremity (Acute) Sepsis (Acute) Knee pain (Acute) Cellulitis of right leg (Acute) Surgical History (Updated 09/02/24 @ 22:13 by Chelo Hidalgo PA-C) History of lymph node excision right neck. pt reports was benign H/O hernia repair Social History Smoking Status: Never smoker Hx Alcohol Use: Yes Alcohol type: beer Hx Substance Use: No Preferred Language: Hungarian Communication Ability: Effective Account Adjuster Required: No Beliefs That Will Affect Care: None Current Living Situation: Alone Other Information That Helps Us Care for You: No Feels Safe at Home: Yes Safety Concerns: Feels Safe At This Time Review of Systems Review of Systems: All systems reviewed & are unremarkable except as noted in HPI & below Physical Exam Physical Exam: General: no acute distress, WDWN Head: normocephalic, atraumatic Eyes: conjunctiva non-injected, anicteric ENT: normal inspection external ears, nose, mucous membranes moist Neck: supple, trachea midline, non-tender Lungs: RR: 24, speaks in full sentences without noted respiratory distress, no wheezing/rhonchi/rales CV: tachycardia, rate 120, no murmur Abd: normal BS, soft, non-tender Ext: no cyanosis. LLE: +edema to distal leg, ankle and foot. +erythema to distal leg and ankle extending to foot with warmth and tenderness to palpation. +scabbed lesions to anterior ankle. ROM intact. distal pulses intact Neuro: A&O x 3, no focal deficits noted, normal affect Skin: as above in Ext, otherwise skin feels hot, dry Results & Data Results & Data Vital Signs (Past 12 Hours) Vital Signs Temp Pulse Resp BP Pulse Ox O2 Del Method 09/02/24 19:59 103 H 09/02/24 19:55 109 H 19 96 Room Air 09/02/24 19:06 37.9 C H 134 H 18 165/101 H 97 Room Air Laboratory Results Short CBC 09/02/24 Range/Units 19:19 WBC 21.86 H (4.8-10.8) K/ul Hgb 15.9 (14.0-18.0) g/dl Hct 44.2 (42.0-52.0) % Plt Count 343 (130-400) K/uL BMP 09/02/24 19:19 Sodium 134 L Potassium 3.8 Chloride 101 Carbon Dioxide 24 BUN 16 Creatinine 1.04 Glucose 98 Calcium 10.1 Liver Function 09/02/24 Range/Units 19:19 Total Bilirubin 1.2 H (0.2-1.0) mg/dl AST 28 (13-39) U/L ALT 55 H (7-52) U/L Alkaline Phosphatase 79 (34-104) U/L Albumin 4.6 (3.4-5.0) gm/dl Supervising Physician Co-Signing Physician Notes IM ATTENDING : Patient seen and examined. History obtained from patient, family, and records. Limited history from patient secondary to disorientation. Concur with salient points upon review of preceding documentation by Ms. Chelo Hidalgo PA-C. In addition, patient admits to alcohol binging on the weekend. Initial RESHMA S score at the ER was [address] LLE: 1. Soft tissue stranding in sub cutaneous plane of leg and visualised foot, predominantly along the lateral aspect of the leg. 2. Soft tissue stranding anterior to the patella. 3. --Could be cellulitis 4. No filling defects in visualised arteries and veins of leg and foot. LLE ultrasound No sonographic evidence of acute DVT was detected at the time of examination. I take responsibility for plan of care below. FINAL ASSESSMENT AND PLAN as follows : Sepsis secondary to LLE cellulitis Alcohol withdrawal Situational hypertension secondary to above Admit to med/tele CS, doxycycline and cefepime RESHMA S, DT precautions DVT prophylaxis per Lovenox subcu Full code I spent a total of 30 minutes coordinating, documenting, and providing care for this patientexcludingtime spent by another provider/QHP. Text document was generated using [employer] voice recognition software. It may contain grammatical or spelling errors. Kindly contact undersigned for clarification of any documentation item in question.
[2024-09-02] MEDS: VANCOMYCIN HCL 1,750 MG in SODIUM CHLORIDE 0.9% 500 ML IV ONE (21:27)
[2024-09-02] MEDS: MAGNESIUM SULFATE / D5W 1 GM/100 ML BAG IV SCH (22:08)
[2024-09-02] MEDS: DOXYCYCLINE HYCLATE 100 MG in DEXTROSE 5% MINI-B 100 ML IV STA (22:09)
[2024-09-02 22:20] LABS: Appearance Urine Clear (Clear); Bilirubin Urine Negative (Negative); Blood Urine Negative (Negative); Color Urine Yellow; Glucose Urine UA Negative (Negative); Ketones Urine 1+ (Negative); Leukocyte Esterase Urine Negative (Negative); Nitrite Urine Negative (Negative); Protein Urine Negative (Negative); Specific Gravity Urine 1.009 (1.000-1.030); Urobilinogen Urine Negative (Negative); pH Urine 5.5 (4.5-7.5)
[2024-09-02] MEDS ORDERED: LORazepam 2 MG/1 ML VIAL IV PRN ×2 (23:19→23:55)
[2024-09-02 23:45] LABS: Creatine Kinase 218 U/L (30-223)
[2024-09-02] MEDS ORDERED: GABAPENTIN 1200MG ALCOHOL WITHDRAWAL LOAD PO STA (23:55)
[2024-09-02] MEDS ORDERED: Ativan IV Alcohol Withdrawal--Active Protocol IV PRN (23:55)
[2024-09-03] MEDS: OPTIRAY 320 100ml IV ONE (00:02)
[2024-09-03] MEDS: METOPROLOL TARTRATE 1 MG/ML VIAL IV STA (00:14)
[2024-09-03] MEDS: THIAMINE HCL 100 MG in SYRINGE 9 ML IV STA (00:22)
[2024-09-03] MEDS: LORazepam 0.5 MG TAB PO PRN (00:22)
[2024-09-03] MEDS: ACETAMINOPHEN 500 MG TAB PO PRN (00:22)
[2024-09-03] MEDS: NSS + 20MEQ KCL 20 MEQ/1,000 ML BAG IV ONE (01:21)
[2024-09-03] MEDS: GABAPENTIN 600 MG TAB PO ONE (01:21)
--- NOTE | 2024-09-03 01:23 | CT Scan Report ---
EXAM: CT tib/fib LT w con CLINICAL HISTORY: swelling ro abscess TECHNIQUE: Contiguous axial CT images of left tibia/fibula were obtained with intravenous contrast. Coronal and sagittal reconstructions were likewise performed and indicated to increase the sensitivity for detecting clinically relevant pathology. CT scan was performed according to ALARA (as low as reasonable achievable). COMPARISON: none FINDINGS: Soft tissue stranding in sub cutaneous plane of leg and visualised foot, predominantly along the lateral aspect of the leg. Soft tissue stranding noted anterior to the patella. Normal subcutaneous adipose space in rest of the leg.. No acute fracture or dislocation. No destructive osseous lesion. The visualized muscles and tendons appear grossly unremarkable. No cortical destruction to suggest osteomyelitis. No abscess formation. No significant joint effusion. There are no soft tissue masses. The major arteries, deep and sperficial veins of leg and visualised foot are normal in course, caliber and opacification IMPRESSION: 1. Soft tissue stranding in sub cutaneous plane of leg and visualised foot, predominantly along the lateral aspect of the leg. 2. Soft tissue stranding anterior to the patella. 3. --Could be cellulitis 4. No filling defects in visualised arteries and veins of leg and foot. Electronically signed by Robert Tompkins 09-03-2024 01:23 AM
--- NOTE | 2024-09-03 02:25 | Ultrasound Report ---
EXAM: US venous doppler LE LT CLINICAL HISTORY: Swelling. TECHNIQUE: Ultrasound examination of the left lower extremity veins was performed in real time and duplex. One or more of the following were performed: spectral analysis, resistive index, waveform analysis, and pulsed Doppler. COMPARISON: None. FINDINGS: Normal phasic, non-pulsatile, and spontaneous flow is noted in the left common femoral, superficial femoral, popliteal and posterior tibial, and peroneal veins. Visualized veins of the left lower extremity demonstrate normal compressibility. No sonographic evidence of acute deep vein thrombosis (DVT) is detected in the visualized veins of the lower extremity. Compression and Augmentation: All evaluated veins compress fully with applied transducer pressure. Augmentation of venous flow is noted with distal compression. Additional Findings: No evidence of intraluminal thrombus. IMPRESSION: No sonographic evidence of acute DVT was detected at the time of examination. Disclaimer: DVT could be missed early in the disease when the clot burden is minimal. For patients with moderate and high pretest probability of DVT and negative ultrasound, the [place] [employer] clinical guidelines recommend testing with a D-dimer assay or repeat ultrasound in 5-7 days. If symptoms worsen, the Society of Radiologists in ultrasound recommends repeating ultrasound even earlier. Electronically signed by John Wells 09-03-2024 02:24 AM
[2024-09-03] MEDS: CEFEPIME 2000MG 2,000 MG/20 ML SYR IV SCH (02:31)
[2024-09-03] MEDS: GABAPENTIN 600 MG TAB PO SCH (06:32)
[2024-09-03 06:59] LABS: Hematocrit (blood only) 41.6 % (42.0-52.0); Hemoglobin 14.6 g/dl (14.0-18.0); Mean Corpuscular Hemoglobin 31.5 pg (25.0-34.0); Mean Corpuscular Hgb Conc 35.1 g/dL (32.0-36.0); Mean Corpuscular Volume 89.7 fL (80.0-100.0); Mean Platelet Volume 10.5 fL (9.4-12.4); Platelet Count 275 K/uL (130-400); RDW Coefficient of Variation 11.9 % (11.5-14.5); RDW Standard Deviation 38.7 fL (36.4-46.3); Red Blood Count 4.64 M/uL (4.70-6.10); White Blood Count 24.09 K/ul (4.8-10.8)
[2024-09-03 07:19] LABS: Albumin Globulin Ratio 1.4 (0.9-2); BUN Creatinine Ratio 9.9 (10-20); Bilirubin,Total 1.8 mg/dl (0.2-1.0); Calcium 8.7 mg/dl (8.6-10.3); Creatinine Clr Calc Pharmacy 90.4 ml/min; Globulin 2.8 gm/dl (2.5-4.0); Potassium 4.2 mmol/L (3.5-5.1); Total Protein 6.8 gm/dl (6.0-8.3)
[2024-09-03 07:34] LABS: Basophils # (auto) 0.07 K/uL (0.00-0.20); Basophils % (auto) 0.3 %; Eosinophils # (auto) 0.02 K/uL (0.00-0.50); Eosinophils % (auto) 0.1 %; Immature Granulocytes # (auto) 0.13 K/uL (0.01-0.20); Immature Granulocytes % (auto) 0.5 %; Lymphocytes # (auto) 1.35 K/uL (1.20-3.40); Lymphocytes % (auto) 5.6 %; Monocytes % (auto) 5.8 %; Neutrophils # (auto) 21.12 K/uL (1.40-6.50); Neutrophils % (auto) 87.7 %
--- NOTE | 2024-09-03 09:05 | Electrocardiogram Report ---
Test Reason : Blood Pressure : */* mmHG Vent. Rate : 120 BPM Atrial Rate : 120 BPM P-R Int : 198 ms QRS Dur : 70 ms QT Int : 304 ms P-R-T Axes : 44 17 17 degrees QTcB Int : 429 ms Sinus tachycardia Nonspecific T wave abnormality Abnormal ECG When compared with ECG of 08-May-2017 15:02, Nonspecific T wave abnormality now evident in Lateral leads Confirmed by Clark Garland ([id number]) on 09/03/2024 9:05:02 AM Referred By: REFERRED SELF Confirmed By: Clark Garland
[2024-09-03] MEDS: MULTIVITAMIN TAB PO SCH (09:42)
[2024-09-03] MEDS: ENOXAPARIN INJ 40 MG/0.4 ML SYR SQ SCH (09:42)
[2024-09-03] MEDS: DOXYCYCLINE HYCLATE 100 MG CAP PO SCH (09:42)
[2024-09-03] MEDS: THIAMINE HCL 100 MG TAB PO SCH (09:43)
[2024-09-03] MEDS: FOLIC ACID 1 MG TAB PO SCH (09:43)
[2024-09-03] MEDS: KETOROLAC TROMETHAMINE 15 MG/ML VIAL IV PRN (13:11)
[2024-09-03] MEDS: LORazepam 2 MG/1 ML VIAL IV PRN ×2 (13:21→18:41)
[2024-09-03] MEDS: LACTATED RINGER'S 1,000 ML IV ONE (13:30)
[2024-09-03] MEDS ORDERED: chlordiazePOXIDE ALCOHOL WITHDRAWL 50MG PO STA (13:37)
[2024-09-03] MEDS: chlordiazePOXIDE HCl 25 MG CAP PO SCH (13:52)
[2024-09-03] MEDS: PIPERACILLIN/TAZOBACTAM 4.5 GM/100 ML BAG IV SCH (14:25)
--- NOTE | 2024-09-03 14:27 | Hospitalist Progress Note ---
Date of Service September 03, 2024 Assessment & Plan (1) Sepsis: (2) Cellulitis of left lower extremity: Plan Sepsis Left lower extremity cellulitis --LLE CT:Soft tissue stranding in sub cutaneous plane of leg and visualised foot, predominantly along the lateral aspect of the leg. Soft tissue stranding anterior to the patella. -Could be cellulitis. No filling defects in visualised arteries and veins of leg and foot. -- Venous Doppler:No sonographic evidence of acute DVT was detected at the time of examination. --Blood Culture:Pending --Normal lactate, procalcitonin -- Transition IV cefepime to Zosyn Day#1 --Continue doxycycline --Continue IV fluids Alcohol withdrawal Transition gabapentin to Librium Continue thiamine, folic acid Withdrawal protocol with IV Ativan as needed Eczema Not on medications Advised to follow-up with dermatology as outpatient DVT Px: Korix SQ Code Status Full Code Admission and Anticipated Discharge Date Admission Date: September 02, 2024 Subjective Patient is seen and examined at bedside States having chills, sinus tachycardia on monitor Left leg pain associated with swelling and erythema Erythema better when compared to yesterday Denies any chest pain, dyspnea No other complaints Review of Systems Review of Systems: All systems reviewed & are unremarkable except as noted in Subjective Physical Exam Physical Exam: Physical Exam: Vitals signs as noted above General Appearance:Moderately built and nourished, no apparent distress Head: normocephalic, Atraumatic Eyes: normal inspection, EOMI Neck: supple, Trachea midline Respiratory/Chest: Normal breath sounds, CTA, No accessory muscle use Cardiovascular: S1, S2, No murmur,+Tachycardia Abdomen/GI:Soft, Non tender, Bowel sounds present Extremities/Musculoskeletal:normal inspection, LLE edema, erythema, tender, warm, eczema with scab Neurologic/Psych:AAOX3, grossly no focal neurological deficits Skin: normal color, warm Results & Data Results & Data Vital Signs (Past 12 Hours) Vital Signs Temp Pulse Resp BP Pulse Ox O2 Del Method 09/03/24 13:39 39.4 C H 09/03/24 11:20 38.6 C H 110 H 18 133/84 96 Room Air 09/03/24 07:25 37.9 C H 112 H 18 125/69 94 Room Air 09/03/24 02:34 37.2 C 109 H 18 113/63 94 Room Air Laboratory Results Short CBC 09/02/24 09/03/24 Range/Units 19:19 06:37 WBC 21.86 H 24.09 H (4.8-10.8) K/ul Hgb 15.9 14.6 (14.0-18.0) g/dl Hct 44.2 41.6 L (42.0-52.0) % Plt Count 343 275 (130-400) K/uL BMP 09/02/24 09/03/24 19:19 06:37 Sodium 134 L 135 L Potassium 3.8 4.2 Chloride 101 105 Carbon Dioxide 24 24 BUN 16 11 Creatinine 1.04 1.11 Glucose 98 105 H Calcium 10.1 8.7 Cardiac Enzymes 09/02/24 Range/Units 19:19 Total Creatine Kinase 218 (30-223) U/L Liver Function 09/02/24 09/03/24 Range/Units 19:19 06:37 Total Bilirubin 1.2 H 1.8 H (0.2-1.0) mg/dl AST 28 19 (13-39) U/L ALT 55 H 40 (7-52) U/L Alkaline Phosphatase 79 68 (34-104) U/L Albumin 4.6 4.0 (3.4-5.0) gm/dl Urine 09/02/24 Range/Units Unknown Urine Color Yellow Urine Appearance Clear (Clear) Urine pH 5.5 (4.5-7.5) Ur Specific [place] 1.009 (1.000-1.030) Urine Protein Negative (Negative) Urine Glucose (UA) Negative (Negative) (1) Sepsis Sepsis acute organ dysfunction status: unspecified Sepsis type: sepsis due to unspecified organism Qualified Code(s): A41.9 - Sepsis, unspecified organism
[2024-09-03] MEDS ORDERED: GABAPENTIN 600 MG TAB PO SCH (22:00)
[2024-09-04 06:34] LABS: Hematocrit (blood only) 39.3 % (42.0-52.0); Hemoglobin 13.6 g/dl (14.0-18.0); Mean Corpuscular Hemoglobin 31.9 pg (25.0-34.0); Mean Corpuscular Hgb Conc 34.6 g/dL (32.0-36.0); Mean Corpuscular Volume 92.3 fL (80.0-100.0); Mean Platelet Volume 10.7 fL (9.4-12.4); Platelet Count 250 K/uL (130-400); RDW Coefficient of Variation 11.9 % (11.5-14.5); RDW Standard Deviation 40.6 fL (36.4-46.3); Red Blood Count 4.26 M/uL (4.70-6.10); White Blood Count 20.88 K/ul (4.8-10.8)
[2024-09-04 07:11] LABS: BUN Creatinine Ratio 10.7 (10-20); Calcium 8.7 mg/dl (8.6-10.3); Creatinine Clr Calc Pharmacy 76.6 ml/min; Potassium 4.2 mmol/L (3.5-5.1)
[2024-09-04] MEDS: oxyCODONE HCL IR 5 MG TAB (IMMEDIATE RELEASE) PO PRN (14:20)
--- NOTE | 2024-09-04 14:56 | Hospitalist Progress Note ---
Date of Service September 04, 2024 Assessment & Plan (1) Sepsis: (2) Cellulitis of left lower extremity: Plan Sepsis Left lower extremity cellulitis --LLE CT:Soft tissue stranding in sub cutaneous plane of leg and visualised foot, predominantly along the lateral aspect of the leg. Soft tissue stranding anterior to the patella. -Could be cellulitis. No filling defects in visualised arteries and veins of leg and foot. -- Venous Doppler:No sonographic evidence of acute DVT was detected at the time of examination. --Blood Culture: No growth to date --Normal lactate, procalcitonin -- Transition IV cefepime to Zosyn Day#2 --Continue doxycycline -- Received IV fluids Leukocytosis trending down Continue current management Alcohol withdrawal Transition gabapentin to Librium Continue thiamine, folic acid Withdrawal protocol with IV Ativan as needed Eczema Not on medications Advised to follow-up with dermatology as outpatient DVT Px: Korix SQ Code Status Full Code Admission and Anticipated Discharge Date Admission Date: September 02, 2024 Subjective Patient is seen and examined at bedside States feeling better today Chills resolved Still has leg pain with ambulation No other complaints today Denies any chest pain, dyspnea nausea, vomiting, abdominal pain Review of Systems Review of Systems: All systems reviewed & are unremarkable except as noted in Subjective Physical Exam Physical Exam: Physical Exam: Vitals signs as noted above General Appearance:Moderately built and nourished, no apparent distress Head: normocephalic, Atraumatic Eyes: normal inspection, EOMI Neck: supple, Trachea midline Respiratory/Chest: Normal breath sounds, CTA, No accessory muscle use Cardiovascular: S1, S2, No murmur,+Tachycardia Abdomen/GI:Soft, Non tender, Bowel sounds present Extremities/Musculoskeletal:normal inspection, LLE edema, erythema, tender, warm, eczema with scab Neurologic/Psych:AAOX3, grossly no focal neurological deficits Skin: normal color, warm Results & Data Results & Data Vital Signs (Past 12 Hours) Vital Signs Temp Pulse Pulse Resp BP Pulse Ox O2 Del Method 09/04/24 11:35 37.3 C 101 H 19 134/91 96 Room Air 09/04/24 08:20 107 H 09/04/24 07:45 37.1 C 97 H 18 113/71 97 Room Air 09/04/24 03:40 36.9 C 102 H 16 119/79 95 Room Air Laboratory Results Short CBC 09/04/24 Range/Units 05:46 WBC 20.88 H (4.8-10.8) K/ul Hgb 13.6 L (14.0-18.0) g/dl Hct 39.3 L (42.0-52.0) % Plt Count 250 (130-400) K/uL BMP 09/04/24 05:46 Sodium 134 L Potassium 4.2 Chloride 103 Carbon Dioxide 26 BUN 14 Creatinine 1.31 Glucose 97 Calcium 8.7 (1) Sepsis Sepsis acute organ dysfunction status: unspecified Sepsis type: sepsis due to unspecified organism Qualified Code(s): A41.9 - Sepsis, unspecified organism
--- NOTE | 2024-09-04 19:35 | Communication Note ---
Date of Service: September 04, 2024 Patient with progressive LLE swelling and fever as per RN. Repeat CT LLE Subcutaneous fat stranding and edema of the visualized lower thigh, knee, and leg, greatest laterally, suspicious for cellulitis. No evidence of soft tissue abscess. No soft tissue gas to suggest necrotizing infection. AP Sepsis, LLE cellulitis Daptomycin in place of doxycycline for better MRSA coverage Continue Zosyn
[2024-09-04] MEDS: SODIUM CHLORIDE 0.9% 1,000 ML IV ONE (20:18)
[2024-09-04] MEDS: chlordiazePOXIDE HCl 25 MG CAP PO SCH (20:18)
[2024-09-04] MEDS: MAGNESIUM SULFATE / D5W 1 GM/100 ML BAG IV ONE (20:18)
[2024-09-04] MEDS: OPTIRAY 320 100ml IV ONE (21:21)
[2024-09-04] MEDS: DAPTOmycin 500 MG in SYRINGE 0 ML IV SCH (21:41)
--- NOTE | 2024-09-04 23:01 | CT Scan Report ---
Exam(s): CT EXTREMITY LEFT LOWER With Contrast EXAM: CT Left Lower Extremity With Intravenous Contrast CLINICAL HISTORY: Reason for exam: worsening leg swelling. TECHNIQUE: Axial computed tomography images of the left lower extremity with intravenous contrast. CTDI is 24.91 mGy and DLP is 1260.18 mGy-cm. Automated exposure control was utilized for the study. A dose lowering technique was utilized adhering to the principles of ALARA. CONTRAST: Contrast must be dictated COMPARISON: No relevant prior studies available. FINDINGS: Bones/joints: Unremarkable. No acute fracture. No dislocation. Soft tissues: Subcutaneous fat stranding and edema of the visualized lower thigh, knee, and leg, greatest laterally, suspicious for cellulitis. No evidence of soft tissue abscess. No soft tissue gas to suggest necrotizing infection. IMPRESSION: Subcutaneous fat stranding and edema of the visualized lower thigh, knee, and leg, greatest laterally, suspicious for cellulitis. No evidence of soft tissue abscess. No soft tissue gas to suggest necrotizing infection. Electronically signed by: Leann Strong M.D. 09/04/24 22:59 PM
[2024-09-05 07:42] LABS: Hemoglobin 12.5 g/dl (14.0-18.0); Mean Corpuscular Hemoglobin 31.2 pg (25.0-34.0); Mean Corpuscular Hgb Conc 34.7 g/dL (32.0-36.0); Mean Corpuscular Volume 89.8 fL (80.0-100.0); Mean Platelet Volume 10.2 fL (9.4-12.4); Platelet Count 262 K/uL (130-400); RDW Coefficient of Variation 11.9 % (11.5-14.5); RDW Standard Deviation 38.9 fL (36.4-46.3); Red Blood Count 4.01 M/uL (4.70-6.10); White Blood Count 16.86 K/ul (4.8-10.8)
[2024-09-05 07:50] LABS: BUN Creatinine Ratio 10.3 (10-20); Calcium 8.4 mg/dl (8.6-10.3); Creatinine Clr Calc Pharmacy 85.4 ml/min; Potassium 3.8 mmol/L (3.5-5.1)
[2024-09-05] MEDS ORDERED: chlordiazePOXIDE HCl 25 MG CAP PO SCH (15:00)
--- NOTE | 2024-09-05 15:41 | Hospitalist Progress Note ---
Date of Service September 05, 2024 Assessment & Plan (1) Sepsis: (2) Cellulitis of left lower extremity: Plan Sepsis Left lower extremity cellulitis --LLE CT:Soft tissue stranding in sub cutaneous plane of leg and visualized foot, predominantly along the lateral aspect of the leg. Soft tissue stranding anterior to the patella. -Could be cellulitis. No filling defects in visualised arteries and veins of leg and foot. -- Venous Doppler:No sonographic evidence of acute DVT was detected at the time of examination. --Blood Culture: No growth to date --Normal lactate, procalcitonin -- Transition IV cefepime to Zosyn Day#3 --Continue doxycycline>> transition to daptomycin Day #1 -- Received IV fluids Given worsening erythema, doxycycline changed to daptomycin Leukocytosis trending down Will consider ID evaluation if no improvement Alcohol withdrawal Transition gabapentin to Librium Continue thiamine, folic acid Withdrawal protocol with IV Ativan as needed No signs of withdrawal today Eczema Not on medications Advised to follow-up with dermatology as outpatient DVT Px: Lovenox SQ Code Status Full Code Admission and Anticipated Discharge Date Admission Date: September 02, 2024 Subjective Patient is seen and examined at bedside Leg pain and swelling improving Leg erythema seems to be worsening Leukocytosis trending down States able to ambulate with no significant leg pain today Denies any chest pain, dyspnea nausea, vomiting, abdominal pain Review of Systems Review of Systems: All systems reviewed & are unremarkable except as noted in Subjective Physical Exam Physical Exam: Physical Exam: Vitals signs as noted above General Appearance:Moderately built and nourished, no apparent distress Head: normocephalic, Atraumatic Eyes: normal inspection, EOMI Neck: supple, Trachea midline Respiratory/Chest: Normal breath sounds, CTA, No accessory muscle use Cardiovascular: S1, S2, No murmur Abdomen/GI:Soft, Non tender, Bowel sounds present Extremities/Musculoskeletal:normal inspection, LLE edema, erythema, tender, warm, eczema with scab Neurologic/Psych:AAOX3, grossly no focal neurological deficits Skin: normal color, warm Results & Data Results & Data Vital Signs (Past 12 Hours) Vital Signs Temp Pulse Resp BP Pulse Ox O2 Del Method 09/05/24 15:31 36.7 C 80 20 139/92 97 Room Air 09/05/24 11:53 36.7 C 94 H 20 119/77 95 Room Air 09/05/24 07:51 36.8 C 92 H 20 135/83 95 Room Air Laboratory Results Short CBC 09/05/24 Range/Units 07:21 WBC 16.86 H (4.8-10.8) K/ul Hgb 12.5 L (14.0-18.0) g/dl Hct 36.0 L (42.0-52.0) % Plt Count 262 (130-400) K/uL BMP 09/05/24 07:21 Sodium 133 L Potassium 3.8 Chloride 104 Carbon Dioxide 22 BUN 12 Creatinine 1.16 Glucose 107 H Calcium 8.4 L (1) Sepsis Sepsis acute organ dysfunction status: unspecified Sepsis type: sepsis due to unspecified organism Qualified Code(s): A41.9 - Sepsis, unspecified organism
[2024-09-05] MEDS: chlordiazePOXIDE HCl 25 MG CAP PO SCH ×2 (15:44→21:52)
[2024-09-05] MEDS: PROMETHAZINE 6.25 MG/50.25 ML BAG IV PRN (18:23)
[2024-09-05] MEDS: MEROPENEM 500 MG in SYRINGE 0 ML IV SCH (19:45)
[2024-09-06 06:26] LABS: Hematocrit (blood only) 40.4 % (42.0-52.0); Mean Corpuscular Hemoglobin 31.7 pg (25.0-34.0); Mean Corpuscular Hgb Conc 34.7 g/dL (32.0-36.0); Mean Corpuscular Volume 91.4 fL (80.0-100.0); Mean Platelet Volume 10.1 fL (9.4-12.4); Platelet Count 354 K/uL (130-400); RDW Coefficient of Variation 11.9 % (11.5-14.5); RDW Standard Deviation 39.9 fL (36.4-46.3); Red Blood Count 4.42 M/uL (4.70-6.10); White Blood Count 14.22 K/ul (4.8-10.8)
[2024-09-06 06:49] LABS: BUN Creatinine Ratio 11.2 (10-20); Calcium 9.1 mg/dl (8.6-10.3); Creatinine Clr Calc Pharmacy 85.4 ml/min; Potassium 3.9 mmol/L (3.5-5.1)
--- NOTE | 2024-09-06 15:20 | Hospitalist Progress Note ---
Date of Service September 06, 2024 Assessment & Plan (1) Sepsis: (2) Cellulitis of left lower extremity: Plan Sepsis Left lower extremity cellulitis --LLE CT:Soft tissue stranding in sub cutaneous plane of leg and visualized foot, predominantly along the lateral aspect of the leg. Soft tissue stranding anterior to the patella. -Could be cellulitis. No filling defects in visualised arteries and veins of leg and foot. -- Venous Doppler:No sonographic evidence of acute DVT was detected at the time of examination. 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 Erythematous rash on back Likely contact dermatitis Benadryl/nystatin as needed Will consider steroid cream if needed Monitor for any drug reaction--less likely Eczema Not on medications Advised to follow-up with dermatology as outpatient DVT Px: Lovenox SQ Code Status Full Code Admission and Anticipated Discharge Date Admission Date: September 02, 2024 Subjective Patient is seen and examined at bedside Noticed some rash on the back which is itchy Discussed with patient's family at bedside Leg pain, swelling, erythema slowly improving No other complaints today Denies any chest pain, dyspnea nausea, vomiting, abdominal pain Review of Systems Review of Systems: All systems reviewed & are unremarkable except as noted in Subjective Physical Exam Physical Exam: Physical Exam: Vitals signs as noted above General Appearance:Moderately built and nourished, no apparent distress Head: normocephalic, Atraumatic Eyes: normal inspection, EOMI Neck: supple, Trachea midline Respiratory/Chest: Normal breath sounds, CTA, No accessory muscle use Cardiovascular: S1, S2, No murmur Abdomen/GI:Soft, Non tender, Bowel sounds present Extremities/Musculoskeletal:normal inspection, LLE edema, erythema, tender, warm, eczema with scab Neurologic/Psych:AAOX3, grossly no focal neurological deficits Skin: normal color, warm Results & Data Results & Data Vital Signs (Past 12 Hours) Vital Signs Temp Pulse Resp BP Pulse Ox O2 Del Method 09/06/24 11:34 36.8 C 81 12 143/91 H 95 Room Air 09/06/24 07:50 36.7 C 83 16 136/90 96 Room Air 09/06/24 03:22 36.6 C 76 18 121/73 96 Room Air Laboratory Results Short CBC 09/06/24 Range/Units 05:59 WBC 14.22 H (4.8-10.8) K/ul Hgb 14.0 (14.0-18.0) g/dl Hct 40.4 L (42.0-52.0) % Plt Count 354 (130-400) K/uL BMP 09/06/24 05:59 Sodium 138 Potassium 3.9 Chloride 105 Carbon Dioxide 26 BUN 13 Creatinine 1.16 Glucose 104 H Calcium 9.1 (1) Sepsis Sepsis acute organ dysfunction status: unspecified Sepsis type: sepsis due to unspecified organism Qualified Code(s): A41.9 - Sepsis, unspecified organism
[2024-09-06] MEDS ORDERED: GABAPENTIN 600 MG TAB PO SCH (18:00)
[2024-09-06] MEDS: NYSTATIN POWDER 15GM BTL EXT PRN (21:03)
[2024-09-06] MEDS: diphenhydrAMINE HCL 25 MG/10 ML UDC PO PRN (21:33)
[2024-09-07 07:49] LABS: Hematocrit (blood only) 38.4 % (42.0-52.0); Hemoglobin 13.3 g/dl (14.0-18.0); Mean Corpuscular Hemoglobin 31.6 pg (25.0-34.0); Mean Corpuscular Hgb Conc 34.6 g/dL (32.0-36.0); Mean Corpuscular Volume 91.2 fL (80.0-100.0); Mean Platelet Volume 10.2 fL (9.4-12.4); Platelet Count 350 K/uL (130-400); RDW Coefficient of Variation 12.1 % (11.5-14.5); RDW Standard Deviation 40.3 fL (36.4-46.3); Red Blood Count 4.21 M/uL (4.70-6.10); White Blood Count 13.39 K/ul (4.8-10.8)
[2024-09-07 08:11] LABS: Calcium 9.2 mg/dl (8.6-10.3); Creatinine Clr Calc Pharmacy 86.7 ml/min
--- NOTE | 2024-09-07 12:51 | Infectious Disease Consult ---
Date of Service September 07, 2024 Telehealth Information I performed this visit using a real-time telehealth connection between my location and the patients location ([facility]). After connecting through interactive tele-video, patient was identified by name and date of and/or wristband check.Patient (or authorized healthcare digital media representative) was informed that this was a telemedicine visit and it was being conducted confidentially over secure lines. My office door was closed and no on e else was present in the room with me.Patient (or authorized healthcare digital media representative) provided consent to proceed with the visit, expressed an understanding of privacy and security of the telemedicine visit, and gave permission to have a hospital digital media representative in the room in order to assist with the visit and to conduct portions of the visit, as needed. I informed the patient (or authorized healthcare digital media representative) that I reviewed their record and presented the opportunity for them to ask any questions regarding the visit today. The patient agreed to participate. Assessment & Plan (1) Cellulitis of left lower extremity: (2) Sepsis: Plan As I can see from the chart, the patient had a simple cellulitis which might have progressed initially but has been getting better over the last 2 days. Cellulitis is less likely to be caused by Gram-negative organisms unless there are open wounds, diabetic ulcers or traumatic injuries; therefore, I would recommend stopping meropenem. Please discontinue daptomycin and start on IV vancomycin if no contraindications. if he continues to improve and is stable for discharge, step-down IV vancomycin to oral linezolid 600 mg twice daily to complete a course of 14 days including inpatient antibiotic days. Thank you for consulting ID. We will sign off for now. History of Present Illness History of Present Illness Mr. Le is a 44-year-old man with medical history of obesity who was admitted to [facility] on 09/02/2024 because of left leg pain and fever. He mentioned that he scratched an itchy area on his left leg around 2 weeks prior to presentation which usually also rubs against his boots. Around 1 week prior to presentation, he started feeling sick with the swelling, redness and pain around his left ankle. He also reported subjective fevers. On presen tation, he was febrile at 38.8 and tachycardic at 116. Initial workup showed leukocytosis of 21.8 (ANC 19), with CT of the left leg showing soft tissue stranding in the subcutaneous plane mainly along the lateral aspect of the leg. He was started on broad-spectrum antibiotics including doxycycline and piperacillin tazobactam/cefepime which later, were escalated to meropenem and daptomycin as the redness continued to worsen. At that time, another repeat CT scan showed subcutaneous fat stranding and edema lower thigh, knee and leg without any evidence of deep-seated infection or necrotizing infection. ID team was consulted for further recommendation and to help guide antiboitic treatment. Allergies Allergy/AdvReac Type Severity Reaction Status Date / Time No Known Allergies Allergy Unverified 09/02/24 21:35 Home Medications Medication Instructions Recorded Confirmed Type No Known Home Medications 09/02/24 09/02/24 History Patient History Surgical History (Updated 09/02/24 @ 22:13 by Chelo Hidalgo PA-C) History of lymph node excision right neck. 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 Physical Exam Could not be performed as the encounter was conducted via TeleMed. Results & Data Vital Signs (Past 12 Hours) Vital Signs Temp Pulse Pulse Resp BP Pulse Ox O2 Del Method 09/07/24 11:02 36.6 C 83 16 149/98 H 96 Room Air 09/07/24 07:49 82 09/07/24 07:29 36.3 C L 80 16 142/94 H 96 Room Air 09/07/24 03:16 36.8 C 84 18 133/87 92 Room Air Laboratory Results Microbiology: 09/02: 2 sets of blood culture negative to date Diagnostic Findings Imaging: CT left leg on 09/04: Subcutaneous fat stranding and edema of the visualized lower thigh, knee, and leg, greatest laterally, suspicious for cellulitis. No evidence of soft tissue abscess. No soft tissue gas to suggest necrotizing infection. (2) Sepsis Sepsis acute organ dysfunction status: unspecified Sepsis type: sepsis due to unspecified organism Qualified Code(s): A41.9 - Sepsis, unspecified organism
[2024-09-07] MEDS ORDERED: VANCOMYCIN CONSULT ACTIVE PRN (14:49)
--- NOTE | 2024-09-07 14:56 | Pharmacy Report ---
Pharmacy PK ABX Note - Date of Service September 07, 2024 - Assessment and Plan Assessment 44 year old M admitted due to left leg pain and fever receiving IV antibiotics for cellulitis. [facility] consulted and recommended transition to vancomycin IV, then linezolid PO on discharge. Antibiotic regimen * Ceftriaxone x 1 09/02 * Doxy 09/02-09/04 * Cefepime 09/03 * Pip/tazo 09/03-09/05 * Daptomycin 09/05-09/06 * Meropenem 09/05-09/06 * Vanc IV 09/07 - Pertinent microbiologic data includes: * 09/02/24: BC x 2 - no growth at 48 hours Plan Vancomycin * Loading dose: 2000 mg IV x 1 * Maintenance dose: 1250 mg IV every 12 hours * Regimen is predicted to achieve target AUC/MELODY of 400-600 mg/L.hr * Vanco level will be ordered around the 4th/5th dose Pharmacy will continue to follow and will adjust dose/frequency as necessary. Thank you. Pharmacy has transitioned to AUC monitoring for vancomycin. AUC/MELODY is the preferred PK/PD target and is associated with decreased risk of nephrotoxicity compared to traditional trough targets.
[2024-09-07] MEDS: VANCOMYCIN HCL 2,000 MG in SODIUM CHLORIDE 0.9% 500 ML IV ONE (16:44)
--- NOTE | 2024-09-07 17:20 | Hospitalist Progress Note ---
Date of Service September 07, 2024 Assessment & Plan (1) Sepsis: (2) Cellulitis of left lower extremity: Plan Sepsis Left lower extremity cellulitis --LLE CT:Soft tissue stranding in sub cutaneous plane of leg and visualized foot, predominantly along the lateral aspect of the leg. Soft tissue stranding anterior to the patella. -Could be cellulitis. No filling defects in visualised arteries and veins of leg and foot. -- Venous Doppler:No sonographic evidence of acute DVT was detected at the time of examination. 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 Erythematous rash on back Likely contact dermatitis Benadryl/nystatin as needed Will consider steroid cream if needed Monitor for any drug reaction--less likely Resolved Eczema Not on medications Advised to follow-up with dermatology as outpatient DVT Px: Lovenox SQ Code Status Full Code Admission and Anticipated Discharge Date Admission Date: September 02, 2024 Subjective Patient is seen and examined at bedside Rash on back resolved Leg swelling, rash much improved as well States having some chills associated with some dizziness this morning Discussed with infectious disease today Denies any chest pain, dyspnea nausea, vomiting, abdominal pain Review of Systems Review of Systems: All systems reviewed & are unremarkable except as noted in Subjective Physical Exam Physical Exam: Physical Exam: Vitals signs as noted above General Appearance:Moderately built and nourished, no apparent distress Head: normocephalic, Atraumatic Eyes: normal inspection, EOMI Neck: supple, Trachea midline Respiratory/Chest: Normal breath sounds, CTA, No accessory muscle use Cardiovascular: S1, S2, No murmur Abdomen/GI:Soft, Non tender, Bowel sounds present Extremities/Musculoskeletal:normal inspection, LLE edema, erythema, tender, warm, eczema with scab Neurologic/Psych:AAOX3, grossly no focal neurological deficits Skin: normal color, warm Results & Data Results & Data Vital Signs (Past 12 Hours) Vital Signs Temp Pulse Pulse Resp BP BP Pulse Ox 09/07/24 16:15 86 09/07/24 15:00 36.3 C L 84 16 127/82 95 09/07/24 11:02 36.6 C 83 16 149/98 H 96 09/07/24 07:49 82 09/07/24 07:29 36.3 C L 80 16 142/94 H 96 O2 Del Method 09/07/24 16:15 09/07/24 15:00 Room Air 09/07/24 11:02 Room Air 09/07/24 07:49 09/07/24 07:29 Room Air Laboratory Results Short CBC 09/07/24 Range/Units 07:13 WBC 13.39 H (4.8-10.8) K/ul Hgb 13.3 L (14.0-18.0) g/dl Hct 38.4 L (42.0-52.0) % Plt Count 350 (130-400) K/uL BMP 09/07/24 07:13 Sodium 137 Potassium 5.0 D Chloride 105 Carbon Dioxide 27 BUN 13 Creatinine 1.18 Glucose 102 H Calcium 9.2 (1) Sepsis Sepsis acute organ dysfunction status: unspecified Sepsis type: sepsis due to unspecified organism Qualified Code(s): A41.9 - Sepsis, unspecified organism
[2024-09-08] MEDS: VANCOMYCIN HCL 1,250 MG in SODIUM CHLORIDE 0.9% 250 ML IV SCH (03:51)
[2024-09-08 06:32] LABS: Hematocrit (blood only) 40.3 % (42.0-52.0); Hemoglobin 13.8 g/dl (14.0-18.0); Mean Corpuscular Hemoglobin 31.9 pg (25.0-34.0); Mean Corpuscular Hgb Conc 34.2 g/dL (32.0-36.0); Mean Corpuscular Volume 93.1 fL (80.0-100.0); Platelet Count 391 K/uL (130-400); RDW Standard Deviation 41.2 fL (36.4-46.3); Red Blood Count 4.33 M/uL (4.70-6.10); White Blood Count 14.14 K/ul (4.8-10.8)
[2024-09-08 06:48] LABS: BUN Creatinine Ratio 11.1 (10-20); Calcium 9.1 mg/dl (8.6-10.3); Creatinine Clr Calc Pharmacy 94.8 ml/min; Potassium 4.6 mmol/L (3.5-5.1)
--- NOTE | 2024-09-08 15:47 | Hospitalist Progress Note ---
Date of Service September 08, 2024 Assessment & Plan (1) Sepsis: (2) Cellulitis of left lower extremity: Plan Sepsis Left lower extremity cellulitis --LLE CT:Soft tissue stranding in sub cutaneous plane of leg and visualized foot, predominantly along the lateral aspect of the leg. Soft tissue stranding anterior to the patella. -Could be cellulitis. No filling defects in visualised arteries and veins of leg and foot. -- Venous Doppler:No sonographic evidence of acute DVT was detected at the time of examination. --Blood Culture: No growth to date --Normal lactate, procalcitonin -- Transition IV cefepime to Zosyn Day#3> transition to meropenem #1 --Continue doxycycline>> transition to daptomycin Day #2 IV meropenem, daptomycin discontinued as recommended by infectious disease Started on vancomycin today -- Received IV fluids Leukocytosis trending down Appreciate infectious disease input Plan to transition IV vancomycin to oral linezolid as able Clinically improving 09/08 cellulitis clinically improving overall Repeat blood cultures: Pending per ID,Continue IV vancomycin with plans to transition to p.o. 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 linezolid Admission and Anticipated Discharge Date Admission Date: September 02, 2024 Subjective follow-up for left leg cellulitis, etc. Seen resting in bed, sitting up, not in distress Comfortable States he is feeling better today Left lower leg redness and pain improving overall erythema of the thigh resolved, now on the distal aspect of the left lower leg only Still having some pain with ambulation No fevers or chills today No other new symptoms Review of Systems Review of Systems: all noted and negative except for above Physical Exam Physical Exam: General- oriented x 3, not in distress, speaks in sentences with no effort or accessory muscle use Eyes- anicteric Neck- no JVD Lungs- clear breath sounds bilaterally, no rales/wheezes Heart- normal rate, regular rhythm; no murmurs Abdomen- normal bowel sounds, nondistended, soft, nontender Extremities- right lower extremity: Essentially normal Left lower extremity: Moderate erythema left lower leg anterior aspect, mild warmth, mild tenderness, Area of small scabbed wounds noted No ankle edema, no foot edema Neuro- alert, oriented x 3; no gross focal neurologic deficits Skin- warm & dry Results & Data Results & Data Vital Signs (Past 12 Hours) Vital Signs Temp Pulse Pulse Resp BP Pulse Ox O2 Del Method 09/08/24 15:06 36.6 C 76 18 138/91 96 Room Air 09/08/24 11:22 36.6 C 74 18 135/89 96 Room Air 09/08/24 07:45 36.5 C 79 18 137/82 98 Room Air 09/08/24 07:24 71 09/08/24 03:59 36.4 C L 83 18 135/90 95 Room Air (1) Sepsis Sepsis acute organ dysfunction status: unspecified Sepsis type: sepsis due to unspecified organism Qualified Code(s): A41.9 - Sepsis, unspecified organism
[2024-09-09 06:45] LABS: Creatinine Clr Calc Pharmacy 95.6 ml/min
--- NOTE | 2024-09-09 09:20 | Hospitalist Progress Note ---
Date of Service September 09, 2024 Assessment & Plan (1) Sepsis: (2) Cellulitis of left lower extremity: Plan Mr. Le is a 44 yo male with no remarkable past medical history admitted for sepsis 2.2 developing LLE cellulitis. Symptoms started one week prior to presentation and progressed. Noted improvement with Vancomycin per prior service, however, LLE now with demarcated area concerning for consolidating abscess formation. #Sepsis iso cellulitis #Left lower extremity cellulitis --LLE CT:Soft tissue stranding in sub cutaneous plane of leg and visualized foot, predominantly along the lateral aspect of the leg. Soft tissue stranding anterior to the patella. -Could be cellulitis. No filling defects in visualised arteries and veins of leg and foot. -- Venous Doppler:No sonographic evidence of acute DVT was detected at the time of examination. --Blood Culture: No growth to date --Normal lactate, procalcitonin -- Initially on cefepime, zosyn, then meropenem and dapto ID consulted: started on IV vancomycin 09/07 Plans to transition to p.o. linezolid upon discharge Repeat CT leg given consolidated area of swelling, erythema, pain on LLE suspicious for abscess formation -if negative, plan discharge in am -if positive, plan surgery consult for I&D #Alcohol withdrawal *stable Transition gabapentin to Librium Continue thiamine, folic acid Withdrawal protocol with IV Ativan as needed Counseled to quit drinking -- no signs of withdrawal today #Erythematous rash on back resolved Benadryl/nystatin as needed Will consider steroid cream if needed Monitor for any drug reaction--less likely Resolved #Eczema Not on medications stable DVT Px: Lovenox SQ Code Status Full Code Dispo contingent on CT leg, potentially tomorrow v Thursday Admission and Anticipated Discharge Date Admission Date: September 02, 2024 Subjective Reports worsening swelling and erythema to area on LLE, the swelling has improved, but seems to be consolidating on anterior LLE Reports more pain and tightness in that area, however, notes that otherwise the rest of the infection appears to be improving Denies fevers, chills, or other systemic symptoms, still notes good ROM despite some discomfort with dorsi/plantarflexion Physical Exam Constitutional: WD/WN, vitals as above Respiratory: normal respiratory effort, lungs clear to auscultation Gastrointestinal (Abdomen): normal bowel sounds, soft, nontender, no hepatosplenomegaly Skin: area of firm swelling with bright erythema on LLE, anterior leg just distal to patella. Questionable fluctuance, notable tenderness in area of demarcated swelling no streaking or other skin lesions noted, pulses intact, Results & Data Results & Data Vital Signs (Past 12 Hours) Vital Signs Temp Pulse Pulse Resp BP Pulse Ox O2 Del Method 09/09/24 07:53 36.3 C L 70 12 122/77 93 Room Air 09/09/24 07:28 70 09/09/24 03:40 36.6 C 77 18 134/83 95 Room Air 09/08/24 22:51 36.5 C 68 18 130/86 94 Room Air 09/08/24 21:47 75 Laboratory Results BMP 09/09/24 05:59 Creatinine 1.07 Medications Administered Home Medications Medication Instructions Recorded Confirmed Last Taken No Known Home Medications 09/02/24 09/02/24 Unknown Active Medications Generic Name Dose Route Start Last Admin Trade Name Freq PRN Reason Stop Dose Admin Acetaminophen 500 mg 09/02/24 23:21 09/09/24 03:52 Acetaminophen 500 Mg Tab PO 10/02/24 23:20 500 mg Q6H PRN Administration fever/pain Diphenhydramine HCl 25 mg 09/06/24 13:53 09/08/24 20:52 Diphenhydramine Hcl 25 Mg/10 Ml Udc PO 10/06/24 13:52 25 mg Q6H PRN Administration Allergy Symptoms Enoxaparin Sodium 40 mg 09/03/24 09:00 09/09/24 08:45 Enoxaparin Inj 40 Mg/0.4 Ml Syr SQ 10/03/24 08:59 40 mg QAM KIM Administration Folic Acid 1 mg 09/03/24 09:00 09/09/24 08:45 Folic Acid 1 Mg Tab PO 10/03/24 08:59 1 mg QAM KIM Administration Promethazine HCl 6.25 mg in 50.25 mls @ 201 mls/hr 09/02/24 23:22 09/05/24 18:38 Phenergan IV 10/02/24 23:21 Infused Q6H PRN Infusion Nausea And Vomiting Vancomycin HCl 1,250 mg/ 275 mls @ 200 mls/hr 09/08/24 04:00 09/09/24 05:44 Sodium Chloride IV 09/15/24 03:59 Infused Q12H KIM Infusion Lorazepam 0.5 mg 09/02/24 23:21 09/06/24 16:36 Lorazepam 0.5 Mg Tab PO 10/02/24 23:20 0.5 mg TID PRN Administration Anxiety Lorazepam 1 mg 09/02/24 23:55 09/04/24 15:16 Lorazepam 2 Mg/1 Ml Vial IV 10/02/24 23:54 1 mg UD PRN Administration EtOH Withdrawal AWSS Score 6,7 Protocol Lorazepam 2 mg 09/02/24 23:55 09/03/24 13:21 Lorazepam 2 Mg/1 Ml Vial IV 10/02/24 23:54 2 mg UD PRN Administration EtOH Withdrawal AWSS Score 8,9 Protocol Multivitamins 1 tab 09/03/24 09:00 09/09/24 08:45 Multivitamin Tab PO 10/03/24 08:59 1 tab QAM KIM Administration Nystatin 1 appln 09/06/24 14:55 09/06/24 21:03 Nystatin Powder 15gm Btl EXT 10/06/24 14:54 1 appln PRN PRN Administration Rash Oxycodone HCl 5 mg 09/02/24 23:21 09/04/24 14:20 Oxycodone Hcl Ir 5 Mg Tab (Immediate Release) PO 09/16/24 23:20 5 mg Q4H PRN Administration Pain Thiamine HCl 100 mg 09/03/24 09:00 09/09/24 08:45 Thiamine Hcl 100 Mg Tab PO 10/03/24 08:59 100 mg QAM KIM Administration (1) Sepsis Sepsis acute organ dysfunction status: unspecified Sepsis type: sepsis due to unspecified organism Qualified Code(s): A41.9 - Sepsis, unspecified organism
[2024-09-09] MEDS: OPTIRAY 320 100ml IV ONE (09:49)
--- NOTE | 2024-09-09 10:12 | CT Scan Report ---
CT tib/fib LT w con CLINICAL HISTORY: repeat, large consolidation swelling on anterior COMPARISON STUDY: Left tibia and fibula CT September 04, 2024. TECHNIQUE: Axial images of the left mid lower leg were obtained following intravenous injection of 94 cc of Optiray 320 IV. Sagittal and coronal reformats were viewed. A dose lowering technique was util ized adhering to the principles of ALARA. FINDINGS: No fractures or areas of bony erosion are identified within visualized portions of the left femur. No fractures or erosion are identified within the left tibia or fibula. There is no soft tiss ue gas within the mid to lower left lower leg. A marker was placed on the skin at site of swelling. N o corresponding fluid collection is present. Moderate subcutaneous stranding and edema of the left lo wer leg is again noted. This has mildly improved since CT of September 04, 2024. There is no associated f luid collection. No fluid along the fascia is identified. No intramuscular abnormalities identified. The distal left superficial femoral, popliteal, anterior tibial, posterior tibial, peroneal and dorsa lis pedis arteries are patent. IMPRESSION: 1. Moderate subcutaneous edema and stranding of the left lower extremity, decreased since CT of September 04, 2024. Associated skin thickening. This represents cellulitis. No fluid collection to suggest abs cess. 2. No abnormality at the site of marker within the anterior distal left thigh. 3. No evidence for osteomyelitis within the visualized skeletal structures. ACT 112: Negative or not required by law. Electronically signed by: Lamberto Chamberlain M.D. 09/09/2024 10:10 AM
--- NOTE | 2024-09-09 14:01 | Pharmacy Report ---
Pharmacy PK ABX Note - Date of Service September 09, 2024 - Assessment and Plan Assessment 09/09: Blood cultures from 09/02 and 08/28 are still no growth to date. Repeat CT of LLE from 09/09 is not suggestive of abscess or osteomyelitis. Vanco level drawn today was 12.5mcg/mL which extrapolates to an MELODY/AUC within the goal range. 09/07: 44 year old M admitted due to left leg pain and fever receiving IV antibiotics for cellulitis. [facility] consulted and recommended transition to vancomycin IV, then linezolid PO on discharge. Antibiotic regimen * Ceftriaxone x 1 09/02 * Doxy 09/02-09/04 * Cefepime 09/03 * Pip/tazo 09/03-09/05 * Daptomycin 09/05-09/06 * Meropenem 09/05-09/06 * Vanc IV 09/07 - Plan Vancomycin * Vanco level = 12.8 mcg/mL which extrapolates to an AUC of 443mg/L.hr * Continue maintenance dose of: 1250 mg IV every 12 hours * Regimen is predicted to achieve target AUC/MELODY of 400-600 mg/L.hr * Another vanco level while be ordered in the next few days if it is continued. Pharmacy will continue to follow and will adjust dose/frequency as necessary. Thank you. Pharmacy has transitioned to AUC monitoring for vancomycin. AUC/MELODY is the preferred PK/PD target and is associated with decreased risk of nephrotoxicity compared to traditional trough targets.
[2024-09-10 04:30] VITALS: TEMP 98.1
[2024-09-10 06:23] LABS: Hematocrit (blood only) 40.3 % (42.0-52.0); Hemoglobin 13.9 g/dl (14.0-18.0); Mean Corpuscular Hemoglobin 31.7 pg (25.0-34.0); Mean Corpuscular Hgb Conc 34.5 g/dL (32.0-36.0); Mean Corpuscular Volume 91.8 fL (80.0-100.0); Mean Platelet Volume 9.9 fL (9.4-12.4); Platelet Count 445 K/uL (130-400); RDW Coefficient of Variation 11.9 % (11.5-14.5); RDW Standard Deviation 40.5 fL (36.4-46.3); Red Blood Count 4.39 M/uL (4.70-6.10); White Blood Count 12.62 K/ul (4.8-10.8)
[2024-09-10 06:41] LABS: BUN Creatinine Ratio 16.5 (10-20); Calcium 9.1 mg/dl (8.6-10.3); Creatinine Clr Calc Pharmacy 102.1 ml/min; Potassium 4.6 mmol/L (3.5-5.1)
[2024-09-10 07:37] VITALS: RESP 16; O2SAT 94
--- NOTE | 2024-09-10 08:27 | Discharge Summary ---
Discharge Summary Date of Service September 10, 2024 Principal Dx & Hospital Course #1 = Principal Diagnosis (1) Sepsis: (2) Cellulitis of left lower extremity: Plan Mr. Le is a 44 yo male with no remarkable past medical history admitted for sepsis 2.2 developing LLE cellulitis. Symptoms started one week prior to presentation and progressed. Noted improvement with Vancomycin per prior service. Infectious disease evaluated patient and recommended 14 days of abx. On 09/09 LLE with demarcated area concerning for consolidating abscess formation; CT resulted back and no signs of fluid collection. On day of discharge, LLE with continued improvement and small residual area of approximately 3 inches just inferior to lateral patella on anterior LLE. Improved tenderness. Explained antibiotic regimen with linezolid to patient who verbalized understanding and plan for follow up with PCP in coming days #Sepsis iso cellulitis resolved #Left lower extremity cellulitis --LLE CT:Soft tissue stranding in sub cutaneous plane of leg and visualized foot, predominantly along the lateral aspect of the leg. Soft tissue stranding anterior to the patella. -Could be cellulitis. No filling defects in visualised arteries and veins of leg and foot. -- Venous Doppler:No sonographic evidence of acute DVT was detected at the time of examination. --Blood Culture: No growth to date --Normal lactate, procalcitonin -- Initially on cefepime, zosyn, then meropenem and dapto ID consulted: plans to transition to p.o. linezolid upon discharge, EOT 09/17 #Alcohol withdrawal *stable completed librium taper Continue thiamine, folic acid Withdrawal protocol with IV Ativan as needed Counseled to quit drinking #Erythematous rash on back resolved Benadryl/nystatin as needed Will consider steroid cream if needed Monitor for any drug reaction--less likely Resolved #Eczema Not on medications stable Notes For Next Care Provider Medication Changes From Visit Linezolid BID x 7 more days (13 doses) Admission HPI Per Admitting Provider Patient is 43 year old male without significant medical history presented to ER with c/o left leg pain, erythema and fever. Patient reports 2 weeks ago had itchy area to left anterior lower leg and was scratching at area. Reports had some scratches noted the following morning. Wears boots and states boots rubbed at area. Noticed some surrounding erythema. States 6 days ago started with tactile fever, diaphoresis, nausea and vomiting and had noticed edema and erythema to left ankle. He reports felt better without further chills/N/V. Today increased pain to left lower leg, increased erythema and has chills. Taking Tylenol and ibuprofen with limited relief. Having some PARRISH today. Denies any known insect or animal bites or poison shahab exposure. States episode of cellulitis in remote past that was treated with oral antibiotics. Denies history MRSA. Reports last tetanus booster within the last 10 years. Denies hematemesis, hematochezia, melena, diarrhea, constipation, dizziness, syncope, vision changes, neck pain, CP, SOB, cough, sore throat, rhinorrhea, abdominal pain, paresthesias, weakness, other rashes, urinary symptoms. Presented to ER and noted to be febrile with T: 37.9C, P: 134, R: 18, BP 165/101, 97% on room air. WBC: 21.8, lactate: 1.4, procalcitonin: 0.04. In ER given 1L NSS, Rocephin 2 g IV, vancomycin IV, Toradol 10 mg IV. Admission Exam Per Admitting Provider General: no acute distress, WDWN Head: normocephalic, atraumatic Eyes: conjunctiva non-injected, anicteric ENT: normal inspection external ears, nose, mucous membranes moist Neck: supple, trachea midline, non-tender Lungs: RR: 24, speaks in full sentences without noted respiratory distress, no wheezing/rhonchi/rales CV: tachycardia, rate 120, no murmur Abd: normal BS, soft, non-tender Ext: no cyanosis. LLE: +edema to distal leg, ankle and foot. +erythema to distal leg and ankle extending to foot with warmth and tenderness to palpation. +scabbed lesions to anterior ankle. ROM intact. distal pulses intact Neuro: A&O x 3, no focal deficits noted, normal affect Skin: as above in Ext, otherwise skin feels hot, dry Discharge Exam Constitutional WD/WN, vitals as above Respiratory normal respiratory effort, lungs clear to auscultation Cardiovascular RRR, no murmur, no edema Gastrointestinal (Abdomen) normal bowel sounds, soft, nontender, no hepatosplenomegaly Skin healing area from prior injury on anterior left ankle with surrounding xerosis 3in diameter of erythema on anterior LLE with signs of reduced swelling Updated Medication List Medication Instructions Recorded Confirmed Type linezolid 600 mg tablet 600 mg PO BID #13 tabs 09/10/24 Rx Hospital Stay Data Consultations 09/02/24 20:53 ED Decision to Admit Stat 09/06/24 09:23 Consult Infectious Diseases Routine Diagnostic Imagining Performed 09/02/24 23:20 CT tib/fib LT w con Stat 09/02/24 23:21 US venous doppler LE LT Stat 09/04/24 19:35 CT leg [CT tib/fib LT w con] Stat 09/09/24 08:41 CT leg [CT tib/fib LT w con] Routine Pending Results Patient Have Any Pending Studies at Discharge: No Discharge Instructions Given to Patient (Per Discharging Provider) You were admitted for sepsis due to severe soft tissue infection of your left lower leg It improved after multiple trials of antibiotics. You will continue 7 more days of oral antibiotics and follow up with your PCP for continued resolution of the infection. Total Time Total Time Spent Total Time Spent (In Minutes): 35
[2024-09-10 09:40] VITALS: BP 131/83
[2024-09-10] MEDS: LINEZOLID 600 MG TAB PO SCH (09:41)
[2024-09-10 10:11] VITALS: PULSE 67
== END 2024-09-10 10:11 | disposition home or self-care (01) | DRG 872 ==
LOC: ED 18:54 → 2N 23:02 → SUATTDRO 23:02 → 2N 09-03 00:14